=== PATIENT | male | born 1950 | race Caucasian/White ===

== ENCOUNTER → 2018-01-31 | Outpatient (CLI) | payer MEDICARE, BC, OTHER ==
[2018-01-31 10:55] LABS: HEMATOCRIT 38.5 % (42.0-52.0); HEMOGLOBIN 13.1 g/dl (13.5-17.5); MEAN CORPUSCULAR HEMOGLOBIN 33.2 pg (27.0-33.0); MEAN CORPUSCULAR VOLUME 97.5 fl (80.0-96.0); PLATELET COUNT, AUTOMATED 284 10^3/uL (150-450); RED BLOOD COUNT 3.95 10^6/uL (4.30-6.10); RED CELL DISTRIBUTION WIDTH 12.7 % (11.5-14.5); WHITE BLOOD COUNT 7.1 10^3/uL (4.0-10.0)
[2018-01-31 11:14] LABS: INR 0.95; PROTHROMBIN TIME 12.7 SECONDS (12.4-14.5)
[2018-01-31 11:31] LABS: ERYTHROCYTE SEDIMENTATION RATE 20 mm/hr (0-20)
[2018-01-31 11:32] LABS: ALBUMIN 4.2 GM/DL (3.2-5.2); ALBUMIN/GLOBULIN RATIO 1.17 (1.00-1.93); ALKALINE PHOSPHATASE 75 U/L (45-117); ALT/SGPT 35 U/L (12-78); ANION GAP 8 MEQ/L (8-16); AST/SGOT 27 U/L (7-37); BLOOD UREA NITROGEN 21 MG/DL (7-18); CALCIUM LEVEL 9.3 MG/DL (8.8-10.2); CARBON DIOXIDE LEVEL 27 MEQ/L (21-32); CHLORIDE LEVEL 106 MEQ/L (98-107); CREATININE FOR GFR 1.08 MG/DL (0.70-1.30); GLOMERULAR FILTRATION RATE > 60.0 (>49); GLUCOSE, FASTING 93 MG/DL (70-100); POTASSIUM SERUM 4.2 MEQ/L (3.5-5.1); SODIUM LEVEL 141 MEQ/L (136-145); TOTAL PROTEIN 7.8 GM/DL (6.4-8.2)
[2018-01-31 11:34] LABS: APPEARANCE, URINE MANUAL CLOUDY (CLEAR); BILIRUBIN, URINE MANUAL NEGATIVE (NEGATIVE); BLOOD URINE MANUAL NEGATIVE (NEGATIVE); COLOR, URINE MANUAL DK YELLOW (YELLOW); GLUCOSE, URINE (UA) MANUAL NEGATIVE (NEGATIVE); KETONE, URINE MANUAL NEGATIVE (NEGATIVE); LEUKOCYTE ESTERASE, URINE MAN NEGATIVE (NEGATIVE); MICROSCOPIC INDICATED? MAN YES (NO); NITRITE, URINE MANUAL NEGATIVE (NEGATIVE); PROTEIN, URINE MANUAL NEGATIVE (NEGATIVE); UROBILINOGEN, URINE MANUAL NORMAL (NORMAL)
[2018-01-31 11:45] LABS: BACTERIA, URINE SMALL AMOUNT; HYALINE CAST, URINE NONE SEEN /lpf (0-1); RBC, URINE NONE SEEN /hpf (0-3); SQUAMOUS EPITHELIAL CELL URINE NONE SEEN /hpf (SMALL AMT); WBC, URINE NONE SEEN /hpf (0-3)
[2018-01-31 11:46] LABS: AMORPHOUS SEDIMENT, URINE SMALL AMOUNT (NEGATIVE); MICROSCOPIC EXAM PERFORMED
== END ==
LOC: M ADMPAT 09:19
DX: Z01.818 Encounter for other preprocedural examination (principal); M17.12 Unilateral primary osteoarthritis, left knee; Z79.899 Other long term (current) drug therapy
CPT/HCPCS: 71046

== ENCOUNTER → 2018-02-08 | Outpatient (REF) | payer MEDICARE, OTHER ==
[2018-02-10 10:31] LABS: HEPATITIS C VIRUS ABY INDEX < 0.0 INDEX (<0.8)
[2018-02-14 08:59] LABS: DRVV SCREEN 40.6 SEC
== END ==
LOC: M LAB REF 18:19
DX: Z01.89 Encounter for other specified special examinations (principal); D68.32 Hemorrhagic disorder due to extrinsic circulating anticoagulants
CPT/HCPCS: 86803

== ENCOUNTER 2018-02-20 11:22 | Inpatient (IN) | payer MEDICARE, BC, OTHER ==
[2018-02-20] MEDS ORDERED: ceFAZolin 2 GM/D5W 50 ML IV BAG (J0690 PER 500MG) As Ordered (11:45)
[2018-02-20] MEDS: LR 1,000 ML IV ×3 (12:07→16:15)
[2018-02-20] MEDS ORDERED: fentaNYL 100 MCG/2 ML INJECTION (J3010) As Ordered ×2 (12:51→13:03)
[2018-02-20] MEDS ORDERED: MIDAZOLAM INJ 2 MG/2 ML VIAL (J2250) As Ordered ×2 (12:51→13:03)
[2018-02-20] MEDS ORDERED: PROPOFOL 200 MG/20 ML VIAL As Ordered ×3 (13:06→15:05)
[2018-02-20] MEDS ORDERED: LIDOCAINE 2% INJ 100 MG/5 ML SDV (FOR ANES.) As Ordered (13:07)
[2018-02-20] MEDS: MIDAZOLAM INJ 2 MG/2 ML VIAL (J2250) IV (13:12)
[2018-02-20] MEDS: fentaNYL 100 MCG/2 ML INJECTION (J3010) IV (13:12)
[2018-02-20] MEDS ORDERED: PHENYLEPHRINE INJ 10MG/ML VIAL (J2370) As Ordered (14:35)
[2018-02-20] MEDS: ceFAZolin 1GM INJ (J0690 PER 500MG) As Ordered (15:05)
[2018-02-20] MEDS ORDERED: ROPIvacaine 0.5% 30 ML INJECTION (J2795 PER 1MG) (15:18)
[2018-02-20] MEDS ORDERED: EPINEPHrine INJ 1 MG/ML 1ML AMP (15:18)
[2018-02-20] MEDS ORDERED: dexameTHASONE 10 MG/1 ML VIAL PRES.FREE (J1100) (15:18)
[2018-02-20] MEDS ORDERED: ONDANSETRON 4MG/2ML VIAL (J2405) As Ordered (15:27)
[2018-02-20] MEDS: TRANEXAMIC ACID 100 MG/ML 10ML VIAL As Ordered (15:28)
[2018-02-20] MEDS: BUPIVACAINE LIPOSOME/PF 1.3% 20 ML VIAL (13.3MG/ML)(EXPAREL) As Ordered (15:28)
[2018-02-20] MEDS: EPINEPHrine INJ 1 MG/ML 1ML AMP As Ordered (15:29)
[2018-02-20] MEDS ORDERED: MORPHINE 1MG/ML IN 0.9% NACL 100ML IV BAG As Ordered (15:46)
[2018-02-20] MEDS ORDERED: NALOXONE INJ 0.4 MG/1 ML VIAL (J2310) IV (16:15)
[2018-02-20] MEDS ORDERED: diphenhydrAMINE INJ 50MG/ML VIAL (J1200) IV (16:15)
[2018-02-20] MEDS ORDERED: NORCO, ANEXSIA 5/325MG TABLET (HYDROcodone/ACETAMINOPHEN) PO (16:15)
[2018-02-20] MEDS ORDERED: ONDANSETRON 4MG/2ML VIAL (J2405) IV ×3 (16:15)
[2018-02-20] MEDS ORDERED: FLEET ENEMA PR (16:15)
[2018-02-20] MEDS ORDERED: NALBUPHINE HCL 10 MG/ML AMP (J2300) IV (16:15)
[2018-02-20] MEDS ORDERED: ACETAMINOPHEN TAB 650MG DOSE (2X325MG) PO (16:15)
[2018-02-20] MEDS ORDERED: EPIDURAL/PCA KEYS XX (16:15)
[2018-02-20] MEDS ORDERED: fentaNYL 100 MCG/2 ML INJECTION (J3010) IV (16:15)
[2018-02-20] MEDS ORDERED: MORPHINE 1MG/ML IN 0.9% NACL 100ML IV BAG IV (16:15)
[2018-02-20] MEDS ORDERED: FLUTICASONE PROP 0.05% NASAL SPRAY 16 GM (FLONASE) (18:30)
[2018-02-20] MEDS ORDERED: IPRATROPIUM 0.5MG/ALBUTEROL 2.5MG INH SOL UD 3ML (DUONEB)(J7620) NEB (18:30)
[2018-02-20] MEDS: GABAPENTIN 300 MG CAP PO (20:14)
[2018-02-20] MEDS: WARFARIN SOD 5 MG TAB PO (20:15)
[2018-02-20] MEDS: LOSARTAN 50 MG TAB PO (20:15)
[2018-02-20] MEDS: SIMVASTATIN 10 MG TAB PO (20:15)
[2018-02-20 21:25] LABS: HIV SCREEN CENTAUR SOURCE NEGATIVE (NEGATIVE)
[2018-02-21] MEDS: LR 1,000 ML IV (04:56)
[2018-02-21 06:38] LABS: HEMATOCRIT 34.6 % (42.0-52.0); HEMOGLOBIN 11.8 g/dl (13.5-17.5); MEAN CORPUSCULAR HEMOGLOBIN 33.2 pg (27.0-33.0); MEAN CORPUSCULAR HGB CONC 34.1 g/dl (32.0-36.5); MEAN CORPUSCULAR VOLUME 97.5 fl (80.0-96.0); PLATELET COUNT, AUTOMATED 251 10^3/uL (150-450); RED BLOOD COUNT 3.55 10^6/uL (4.30-6.10); RED CELL DISTRIBUTION WIDTH 12.3 % (11.5-14.5)
[2018-02-21 06:48] LABS: INR 1.04; PROTHROMBIN TIME 13.7 SECONDS (12.4-14.5)
[2018-02-21 06:57] LABS: ANION GAP 7 MEQ/L (8-16); BLOOD UREA NITROGEN 17 MG/DL (7-18); CALCIUM LEVEL 8.5 MG/DL (8.8-10.2); CARBON DIOXIDE LEVEL 26 MEQ/L (21-32); CHLORIDE LEVEL 108 MEQ/L (98-107); CREATININE FOR GFR 1.12 MG/DL (0.70-1.30); GLOMERULAR FILTRATION RATE > 60.0 (>49); GLUCOSE, FASTING 127 MG/DL (70-100); MAGNESIUM LEVEL 1.6 MG/DL (1.8-2.4); POTASSIUM SERUM 4.2 MEQ/L (3.5-5.1); SODIUM LEVEL 141 MEQ/L (136-145)
[2018-02-21] MEDS ORDERED: ONDANSETRON 4 MG TAB (S0181) PO (07:00)
[2018-02-21] MEDS ORDERED: PERCOCET 5MG/325MG TAB PO (07:00)
[2018-02-21] MEDS: ALBUTEROL 90 MCG/ACT 8GM HFA INHALER INH (08:31)
[2018-02-21] MEDS: MIRALAX *UNIT DOSE* 17GM PACKET PO (08:49)
[2018-02-21] MEDS: PANTOPRAZOLE 40MG TAB (PROTONIX) PO (08:49)
[2018-02-21] MEDS: MULTIVITAMINS/MINERALS THERAP 1 TAB PO (08:49)
[2018-02-21] MEDS: hydroCHLOROthiazide 12.5 MG CAPSULE PO (08:49)
[2018-02-21] MEDS: MOM 30ML SUSPENSION UDC PO (08:49)
[2018-02-21] MEDS: SENOKOT S TAB PO (08:50)
[2018-02-21] MEDS: OMEGA-3 1050MG CAPSULE PO (08:50)
[2018-02-21] MEDS: PERCOCET 5MG/325MG TAB PO (08:50)
[2018-02-21] MEDS: MAG SULF 1GM/100ML (MAG RUN) 1 GM in APPROPRIATE DILUENT 1 EA IV (08:56)
[2018-02-21] MEDS ORDERED: WARFARIN SOD 7.5 MG TAB PO (17:00)
[2018-02-21] MEDS ORDERED: WARFARIN SOD 5 MG TAB PO (17:00)
[2018-02-22 10:25] LABS: HEPATITIS B SURFACE ANTIGEN NEGATIVE (NEGATIVE)
[2018-02-22 10:52] LABS: HEP C VIRUS AB INDEX SOURCE PT < 0.0 INDEX (0.0-0.8)
== END 2018-02-21 12:40 | disposition home health service (06) | DRG 470 ==
LOC: M OR 11:22 → M MS5PR 16:55
PROVIDERS: Orthopaedic Surgery
PROC: 0SRD0J9 Replacement of Left Knee Joint with Synthetic Substitute, Cemented, Open Approach (ICD-10-PCS; principal; 2018-02-20 14:09)
DX: M17.12 Unilateral primary osteoarthritis, left knee (principal); I10 Essential (primary) hypertension; I49.3 Ventricular premature depolarization; E78.5 Hyperlipidemia, unspecified; M54.5 Low back pain; J45.909 Unspecified asthma, uncomplicated; Z98.52 Vasectomy status; Z79.899 Other long term (current) drug therapy; Z88.8 Allergy status to other drugs, medicaments and biological substances; Z87.891 Personal history of nicotine dependence; Z77.090 Contact with and (suspected) exposure to asbestos

== ENCOUNTER → 2018-02-23 | Outpatient (REF) | payer MEDICARE, BC, OTHER ==
[2018-02-23 14:14] LABS: INR 1.39; PROTHROMBIN TIME 17.4 SECONDS (12.4-14.5)
== END ==
LOC: M SHH 13:19
DX: Z79.01 Long term (current) use of anticoagulants (principal)
CPT/HCPCS: 85610

== ENCOUNTER → 2018-02-27 | Outpatient (REF) | payer MEDICARE, BC, OTHER ==
[2018-02-27 12:45] LABS: INR 2.27; PROTHROMBIN TIME 25.9 SECONDS (12.4-14.5)
== END ==
LOC: M SHH 11:29
DX: Z51.81 Encounter for therapeutic drug level monitoring (principal); Z79.01 Long term (current) use of anticoagulants
CPT/HCPCS: 85610

== ENCOUNTER → 2018-03-02 | Outpatient (REF) | payer MEDICARE, OTHER ==
[2018-03-02 11:34] LABS: INR 2.37; PROTHROMBIN TIME 26.8 SECONDS (12.4-14.5)
== END ==
LOC: M SHH 11:07
DX: Z79.01 Long term (current) use of anticoagulants (principal)
CPT/HCPCS: 85610

== ENCOUNTER → 2018-03-07 | Outpatient (REF) | payer MEDICARE, OTHER ==
[2018-03-07 12:07] LABS: PROTHROMBIN TIME 33.4 SECONDS (12.4-14.5)
== END ==
LOC: M LABDRAW1 11:45
DX: Z79.01 Long term (current) use of anticoagulants (principal)
CPT/HCPCS: 85610

== ENCOUNTER → 2018-03-10 | Outpatient (REF) | payer MEDICARE, OTHER ==
[2018-03-10 11:45] LABS: INR 2.26; PROTHROMBIN TIME 25.8 SECONDS (12.4-14.5)
== END ==
LOC: M LABDRAW1 11:21
DX: Z79.01 Long term (current) use of anticoagulants (principal)
CPT/HCPCS: 85610

== ENCOUNTER → 2018-03-13 | Outpatient (REF) | payer MEDICARE, OTHER ==
[2018-03-13 09:55] LABS: INR 2.05; PROTHROMBIN TIME 23.9 SECONDS (12.4-14.5)
== END ==
LOC: M SHH 09:23
DX: Z51.81 Encounter for therapeutic drug level monitoring (principal); Z79.01 Long term (current) use of anticoagulants
CPT/HCPCS: 85610

== ENCOUNTER → 2018-03-16 | Outpatient (REF) | payer MEDICARE, OTHER ==
[2018-03-16 10:39] LABS: INR 2.14; PROTHROMBIN TIME 24.7 SECONDS (12.4-14.5)
== END ==
LOC: M SHH 09:47
DX: Z51.81 Encounter for therapeutic drug level monitoring (principal); Z79.01 Long term (current) use of anticoagulants
CPT/HCPCS: 85610

== ENCOUNTER → 2018-03-20 | Outpatient (REF) | payer MEDICARE, OTHER ==
[2018-03-20 10:30] LABS: INR 1.76
== END ==
LOC: M SHH 10:02
DX: Z79.01 Long term (current) use of anticoagulants (principal)
CPT/HCPCS: 85610

== ENCOUNTER → 2018-08-16 | Outpatient (REF) | payer MEDICARE, OTHER ==
[2018-08-18 11:39] LABS: LDL DIRECT 94 mg/dL (0-99)
== END ==
LOC: M LAB REF 17:20
DX: E78.00 Pure hypercholesterolemia, unspecified (principal)
CPT/HCPCS: 83721

== ENCOUNTER → 2018-09-08 | Outpatient (REF) | payer MEDICARE, OTHER ==
[2018-09-10 08:06] LABS: LDL DIRECT 41 mg/dL (0-99)
== END ==
LOC: M LAB REF 16:11
DX: E78.00 Pure hypercholesterolemia, unspecified (principal)
CPT/HCPCS: 83721

== ENCOUNTER → 2018-09-12 | Outpatient (REF) | payer MEDICARE, OTHER ==
[2018-09-14 09:22] LABS: GAMMA GLUTAMYLTRANSPEPTIDASE 4036 U/L (15-85)
[2018-09-15 10:28] LABS: HEPATITIS B SURFACE ANTIGEN NEGATIVE (NEGATIVE)
[2018-09-15 10:55] LABS: HEPATITIS C VIRUS ABY INDEX 0.1 INDEX (<0.8)
[2018-09-15 10:55] LABS: HEPATITIS B CORE ANTIBODY IGM NEGATIVE (NEGATIVE)
[2018-09-15 10:57] LABS: HEPATITIS A ANTIBODY IGM NEGATIVE (NEGATIVE)
== END ==
LOC: M LAB REF 09-13 12:22
DX: R74.8 Abnormal levels of other serum enzymes (principal)
CPT/HCPCS: 82977

== ENCOUNTER → 2018-09-22 | Outpatient (REF) | payer MEDICARE, OTHER ==
[2018-09-22 12:55] LABS: FERRITIN 3252 NG/ML (26-388); IRON (FE) 127 UG/DL (65-175); TOTAL IRON BINDING CAPACITY 205 UG/DL (250-450); VITAMIN B12 LEVEL 403 PG/ML (247-911)
[2018-09-22 14:52] LABS: MAGNESIUM LEVEL 1.2 MG/DL (1.8-2.4)
== END ==
LOC: M LABDRAW1 09:11
DX: D64.9 Anemia, unspecified (principal); E83.42 Hypomagnesemia
CPT/HCPCS: 82746

== ENCOUNTER 2019-03-13 08:18 | Day surgery (SDC) | payer MEDICARE, OTHER, BC ==
[~2019-03-13] VITALS: Ht 167.6 cm; Wt 74.3 kg
[~2019-03-13 08:18] MED LIST: ALBU17IN INH; ALEV220C2 PO; COUM2.5T17 PO; FISH1000 PO; FISH100049 PO; FLON1SPR; HYDR12.55 PO; HYDR25TAB PO; LISI40TA52 PO; LOSA100T50 PO; LUTE1CAP7 PO; LUTE25CA PO; MAGN400T PO; MILK175T PO; MILK300C PO; MULTCAP PO; NEUR300C PO; NS 1,000 ML IV ONE; PANT40TA3 PO; PERC5TAB12 PO; PROPOFOL 200 MG/20 ML VIAL As Ordered ONE; SIMV10TA2 PO; VENTAER INH; VIAG100T PO
[2019-03-13] MEDS ORDERED: PROPOFOL 200 MG/20 ML VIAL As Ordered ONE (10:15)
[2019-03-13] MEDS ORDERED: LIDOCAINE 2% INJ 100 MG/5 ML SDV (FOR ANES.) As Ordered ONE (10:16)
--- NOTE | 2019-03-13 10:27 | ROOR ---
Patient Name: Calvin Rodriguez Procedure Date: 03/13/2019 9:49 AM Date of : 1950 Age: 68 Room: [facility] Gender: Male Note Status: Finalized Procedure: Colonoscopy Indications: High risk colon cancer surveillance: Personal history of multiple (3 or more) adenomas, Family history of colon cancer in a first-degree relative, Last colonoscopy: December 2015 Providers: Rafael Mancilla MD Referring MD: Bridgett MARTINEZ MD Requesting Provider: Medicines: Monitored Anesthesia Care Complications: No immediate complications. Procedure: Pre-Anesthesia Assessment: - Prior to the procedure, a History and Physical was performed, and patient medications and allergies were reviewed. The patient is competent. The risks and benefits of the procedure and the sedation options and risks were discussed with the patient. All questions were answered and informed consent was obtained. Patient identification and proposed procedure were verified by the physician, the nurse and the pattern scratcher in the procedure room. Mental Status Examination: alert and oriented. Airway Examination: normal oropharyngeal airway and neck mobility. CV Examination: regular rate and rhythm. Prophylactic Antibiotics: The patient does not require prophylactic antibiotics. Prior Anticoagulants: The patient has taken no previous anticoagulant or antiplatelet agents. ASA Grade Assessment: II - A patient with mild systemic disease. After reviewing the risks and benefits, the patient was deemed in satisfactory condition to undergo the procedure. The anesthesia plan was to use monitored anesthesia care (MAC). Immediately prior to administration of medications, the patient was re-assessed for adequacy to receive sedatives. The heart rate, respiratory rate, oxygen saturations, blood pressure, adequacy of pulmonary ventilation, and response to care were monitored throughout the procedure. The physical status of the patient was re-assessed after the procedure. The Colonoscope was introduced through the anus and advanced to the cecum, identified by appendiceal orifice and ileocecal valve. The colonoscopy was difficult due to a vigorous cough which patient had present throughout the proc. The patient tolerated the procedure well. The quality of the bowel preparation was good. Findings: The perianal and digital rectal examinations were normal. Multiple medium-mouthed diverticula were found in the sigmoid colon and descending colon. Impression: - Diverticulosis in the sigmoid colon and in the descending colon. - No specimens collected. Recommendation: - Discharge patient to home. - Resume previous diet. - Continue present medications. - Repeat colonoscopy in 3 years for surveillance. Rafael Mancilla MD Rafael Mancilla MD 03/13/2019 10:27:10 AM Electronically signed by Rafael Mancilla MD Number of Addenda: 0 Note Initiated On: 03/13/2019 9:49 AM Estimated Blood Loss: Estimated blood loss: none.
[2019-03-13 10:40] VITALS: BP 142/85
== END 2019-03-13 11:27 | disposition home or self-care (01) ==
LOC: M OPP 08:18
PROVIDERS: ATTEND Surgery
DX: K57.30 Diverticulosis of large intestine without perforation or abscess without bleeding (principal); Z86.010 Personal history of colon polyps; Z80.0 Family history of malignant neoplasm of digestive organs

== ENCOUNTER 2020-10-07 18:46 | Emergency (ER) | payer MEDICARE, OTHER, BC ==
[~2020-10-07] VITALS: Ht 170.2 cm; Wt 77.3 kg
[~2020-10-07 18:46] MED LIST changes: -MAGN400T PO; +MAGN400T3 PO; -NS 1,000 ML IV ONE; +PANT40TA29 PO; -PANT40TA3 PO; -PROPOFOL 200 MG/20 ML VIAL As Ordered ONE; -SIMV10TA2 PO; +SIMV10TA21 PO
[2020-10-07 19:17] LABS: BASO % 0.3 % (0.0-1.0); EOS # 0.1 10^3/uL (0.0-0.5); EOS % 0.7 % (0.0-3.0); HEMATOCRIT 40.2 % (42.0-52.0); LYMPH # 0.5 10^3/uL (1.5-5.0); LYMPH % 5.7 % (24.0-44.0); MEAN CORPUSCULAR HEMOGLOBIN 32.2 pg (27.0-33.0); MEAN CORPUSCULAR HGB CONC 32.3 g/dl (32.0-36.5); MEAN CORPUSCULAR VOLUME 99.5 fl (80.0-96.0); MONO # 0.3 10^3/uL (0.0-0.8); MONO % 3.1 % (0.0-5.0); NEUTROPHILS # 7.8 10^3/uL (1.5-8.5); NEUTROPHILS % 89.7 % (36.0-66.0); PLATELET COUNT, AUTOMATED 233 10^3/uL (150-450); RED BLOOD COUNT 4.04 10^6/uL (4.30-6.10); WHITE BLOOD COUNT 8.7 10^3/uL (4.0-10.0)
[2020-10-07 19:44] LABS: ALBUMIN 3.9 GM/DL (3.2-5.2); ALT/SGPT 25 U/L (12-78); BILIRUBIN,DIRECT < 0.1 MG/DL (0.0-0.2); BILIRUBIN,TOTAL 0.5 MG/DL (0.2-1.0); BLOOD UREA NITROGEN 21 MG/DL (7-18); CARBON DIOXIDE LEVEL 27 MEQ/L (21-32); CHLORIDE LEVEL 105 MEQ/L (98-107); CREATININE FOR GFR 0.99 MG/DL (0.70-1.30); GLOMERULAR FILTRATION RATE > 60.0 (>49); GLUCOSE, FASTING 115 MG/DL (70-100); LIPASE 694 U/L (73-393); NT-PRO BNP 108 PG/ML (<125); SODIUM LEVEL 138 MEQ/L (136-145); TOTAL PROTEIN 7.4 GM/DL (6.4-8.2)
--- NOTE | 2020-10-07 20:21 | REPVR ---
PROCEDURE INFORMATION: Exam: XR Chest, 1 View Exam date and time: 10/07/2020 7:54 PM Age: 70 years old Clinical indication: Chest pain; Type not specified TECHNIQUE: Imaging protocol: XR of the chest Views: 1 view. COMPARISON: CR Chest, 2 view PA, Lat 01/31/2018 10:46 AM FINDINGS: Lungs: Lung hawkins are otherwise clear. Pleural space: Multiple bilateral calcified pleural plaques again redemonstrated. Heart/Mediastinum: Unremarkable. No cardiomegaly. Bones/joints: Unremarkable. IMPRESSION: No acute findings. No interval change. Electronically signed by: Devonte Mcclain On 10/07/2020 20:21:47 PM
[2020-10-07 20:45] VITALS: BP 145/89
--- NOTE | 2020-10-09 13:06 | ECGEPIP ---
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
== END 2020-10-07 21:04 | disposition home or self-care (01) ==
LOC: EDBD 18:46 → M ED 18:46
DX: R40.0 Somnolence (principal); I10 Essential (primary) hypertension; F12.10 Cannabis abuse, uncomplicated; Z88.5 Allergy status to narcotic agent

== ENCOUNTER → 2020-11-13 | Outpatient (REF) | payer MEDICARE, OTHER ==
[~2020-11-13] MED LIST changes: +HYDR-3490 PO; -HYDR25TAB PO
== END ==
LOC: M LAB REF 16:12
PROVIDERS: ATTEND Internal Medicine
DX: R74.8 Abnormal levels of other serum enzymes (principal)

== ENCOUNTER → 2022-06-27 | Outpatient (CLI) | payer MEDICARE, BC, OTHER ==
[~2022-06-27] MED LIST changes: +FINA5TAB2; +GABA-282; +LOSA100T45 PO; -LOSA100T50 PO; +MAGN400T2; -MAGN400T3 PO; +MAGN400T33 PO; +ROSU5TAB5; +VITMTA PO
== END ==
LOC: M LABSMTC 11:36
PROVIDERS: ATTEND Anesthesiology
DX: Z01.812 Encounter for preprocedural laboratory examination (principal); Z20.822 Contact with and (suspected) exposure to COVID-19

== ENCOUNTER 2022-07-02 09:34 | Day surgery (SDC) | payer MEDICARE, BC, OTHER ==
[~2022-07-02] VITALS: Ht 167.6 cm; Wt 79.1 kg
[~2022-07-02 09:34] MED LIST changes: +NS 1,000 ML IV ONE
[2022-07-02] MEDS ORDERED: propofoL 200 MG/20 ML VIAL As Ordered ONE ×3 (11:27→11:40)
[2022-07-02] MEDS ORDERED: LIDOCAINE 2% 100MG/5ML SDV (FOR ANES.) As Ordered ONE (11:27)
[2022-07-02 12:20] VITALS: BP 148/88
== END 2022-07-02 12:34 | disposition home or self-care (01) ==
LOC: M OPP 09:34
PROVIDERS: ATTEND Surgery
DX: Z12.11 Encounter for screening for malignant neoplasm of colon (principal); Z86.010 Personal history of colon polyps; Z80.0 Family history of malignant neoplasm of digestive organs; K57.30 Diverticulosis of large intestine without perforation or abscess without bleeding; Z79.02 Long term (current) use of antithrombotics/antiplatelets; Z79.891 Long term (current) use of opiate analgesic; Z79.899 Other long term (current) drug therapy; Z88.5 Allergy status to narcotic agent; I10 Essential (primary) hypertension; E78.5 Hyperlipidemia, unspecified; J45.909 Unspecified asthma, uncomplicated; N40.0 Benign prostatic hyperplasia without lower urinary tract symptoms

== ENCOUNTER → 2024-11-16 | Outpatient (REF) | payer MEDICARE, BC, OTHER ==
[~2024-11-16] MED LIST changes: +GABA-1172; -GABA-282; -LOSA100T45 PO; +LOSA100T46 PO; -NS 1,000 ML IV ONE; +ROSU5TAB49; -ROSU5TAB5
== END ==
LOC: M LAB REF 12:32
PROVIDERS: ATTEND Internal Medicine
DX: M54.50 Low back pain, unspecified (principal)

== ENCOUNTER 2025-04-24 11:35 | Emergency (ER) | payer MEDICARE, BC, OTHER ==
[~2025-04-24] VITALS: Ht 167.6 cm; Wt 84.9 kg
[2025-04-24] MEDS: RABIES VACCINE HUMAN 2.5 INTERNATIONAL UNITS/ML VIAL (IMOVAX) IM ONE (13:39)
[2025-04-24 14:07] VITALS: BP 178/82; TEMP 98; O2SAT 96
== END 2025-04-24 14:09 | disposition home or self-care (01) ==
LOC: M ED 11:35
DX: Z20.3 Contact with and (suspected) exposure to rabies (principal); Z29.14 Encounter for prophylactic rabies immune globulin; W55.89XA Other contact with other mammals, initial encounter; I10 Essential (primary) hypertension; Z88.5 Allergy status to narcotic agent; Z79.52 Long term (current) use of systemic steroids; Z79.899 Other long term (current) drug therapy; Y99.9 Unspecified external cause status

== ENCOUNTER 2025-04-28 10:30 | Emergency (ER) | payer MEDICARE, BC, OTHER ==
[~2025-04-28] VITALS: Ht 167.6 cm; Wt 84.3 kg
[2025-04-28 11:34] VITALS: BP 160/86; TEMP 97.2; O2SAT 98
[2025-04-28] MEDS: RABIES VACCINE HUMAN 2.5 INTERNATIONAL UNITS/ML VIAL (IMOVAX) IM ONE (11:35)
== END 2025-04-28 11:56 | disposition home or self-care (01) ==
LOC: M ED 10:30
DX: Z23 Encounter for immunization (principal); Z29.14 Encounter for prophylactic rabies immune globulin; Z20.3 Contact with and (suspected) exposure to rabies

== ENCOUNTER → 2025-07-12 | Outpatient (REF) | payer MEDICARE, BC, OTHER | LOC: M LAB REF 14:32 | PROVIDERS: ATTEND Internal Medicine | DX: M19.90 Unspecified osteoarthritis, unspecified site (principal) ==

== ENCOUNTER → 2025-08-26 | Outpatient (REF) | payer MEDICARE, OTHER | LOC: M LAB REF 14:32 | PROVIDERS: ATTEND Internal Medicine | DX: M10.9 Gout, unspecified (principal) ==